=== PATIENT | female | born 1965 | race Hispanic/Latino ===

== ENCOUNTER → 2022-02-07 | Outpatient (CLI) | payer BC | END | disposition home or self-care (01) | LOC: RAH 10:52 | PROVIDERS: ATTEND Orthopaedic Surgery | DX: M48.02 Spinal stenosis, cervical region (principal); M50.10 Cervical disc disorder with radiculopathy, unspecified cervical region | CPT/HCPCS: 72141 ==

== ENCOUNTER 2022-02-28 05:57 | Day surgery (SDC) | payer BC ==
[2022-02-27 11:02] VITALS: BP 131/76
[2022-02-28] VITALS (18 sets, daily range): BP systolic 115–151; BP diastolic 58–79
[~2022-02-28] VITALS: Ht 149.9 cm; Wt 71.4 kg
[~2022-02-28 05:57] MED LIST: ACET-2743 PO; ACET-3540 PO; ATOR20TA65 PO; IBUP-2077 PO
[2022-02-28] MEDS ORDERED: LACTATED RINGERS 1000ML 1,000 ML IV ONE (07:01)
[2022-02-28] MEDS ORDERED: CEFAZOLIN SODIUM 1 GM VIAL ONE (07:01)
[2022-02-28 07:40] LABS: INR 0.93 (0.85-1.15); PROTHROMBIN TIME 9.5 SEC (9.6-11.6)
[2022-02-28] MEDS ORDERED: MIDAZOLAM HCL 1 MG/ML 2ML VIAL ONE (07:59)
[2022-02-28] MEDS ORDERED: FENTANYL CITRATE PF 50 MCG/1 ML 2ML VIAL ONE ×2 (08:00→09:24)
[2022-02-28] MEDS: CEFAZOLIN SODIUM 2 GM VIAL IV SCH ×2 (08:04→09:00)
[2022-02-28] MEDS ORDERED: PHENYLEPHRINE HCL 10 MG/ML 1ML VIAL IV ONE (09:19)
[2022-02-28] MEDS ORDERED: ONDANSETRON 4MG INJ ONE ×2 (09:24→10:08)
[2022-02-28] MEDS ORDERED: MEPERIDINE-PF 25 MG/ML SYG ONE (10:08)
== END 2022-02-28 12:30 | disposition home or self-care (01) ==
LOC: DAH 05:57
PROVIDERS: ATTEND Neurological Surgery
DX: G56.01 Carpal tunnel syndrome, right upper limb (principal); E66.9 Obesity, unspecified; Z98.890 Other specified postprocedural states; Z98.891 History of uterine scar from previous surgery; Z79.01 Long term (current) use of anticoagulants
CPT/HCPCS: 36415; 64721; 85610; 87635; A4215; A4221; A4222; A4223 ×2; A4663; A6260; C9803; J0690; J2175; J2250; J2370; J2405 ×2; J3010 ×2; J7120

== ENCOUNTER 2024-02-23 11:26 | Emergency (ER) | payer BC ==
[~2024-02-23] VITALS: Ht 149.9 cm; Wt 70.3 kg
[2024-02-23 12:35] LABS: APPEARANCE,URINE CLEAR (CLEAR); BILIRUBIN,URINE NEGATIVE (NEGATIVE); COLOR,URINE DARK-YELLOW (YELLOW); GLUCOSE, URINE (UA) NEGATIVE (NEGATIVE); KETONES,URINE NEGATIVE (NEGATIVE); LEUKOCYTE ESTERASE ,URINE NEGATIVE Leu/uL (NEGATIVE); NITRATE,URINE 1+ (NEGATIVE); PH,URINE 5.5 (5.0-8.0); PROTEIN,URINE NEGATIVE (NEGATIVE); SQUAMOUS EPITHELIAL CELL,UR FEW /HPF (0-2); WBC,URINE 0-1 /HPF (0-1)
[2024-02-23 12:41] LABS: BASOPHILS # (AUTO) 0.06 K/uL (0.00-0.20); EOSINOPHILS % (AUTO) 1.7 % (0.0-8.0); HEMATOCRIT 41.8 % (36-48); IMMATURE GRANULOCYTE ABSOLUTE 0.02 K/uL (0-1); LYMPHOCYTES # (AUTO) 2.2 K/uL (1.0-4.8); LYMPHOCYTES % (AUTO) 37.9 % (21.0-51.0); MEAN CORPUSCULAR HEMOGLOBIN 31.1 pg (27.0-33.0); MEAN CORPUSCULAR VOLUME 91.5 fL (79-99); MONOCYTES # (AUTO) 0.4 K/uL (0.1-1.0); NEUTROPHILS % (AUTO) 52.1 % (40.0-77.0); PLATELET COUNT (AUTO) 327 K/uL (130-400); RED BLOOD CELL COUNT(AUTO) 4.57 MIL/uL (4.00-5.50); RED CELL DISTRIBUTION WIDTH 12.3 % (11.0-15.5); WHITE BLOOD COUNT (AUTO) 5.7 K/uL (4.8-10.8)
[2024-02-23 13:00] LABS: CREATININE 1.1 mg/dL (0.5-1.0); POTASSIUM 4.1 mmol/L (3.5-5.1)
[2024-02-23] MEDS ORDERED: CEPH500T PO (14:27)
[2024-02-23] MEDS ORDERED: ONDANSETRON 4MG INJ IVP ONE (14:30)
[2024-02-23] MEDS: CEFTRIAXONE 2GM VIAL IVPB ONE (14:32)
[2024-02-23] MEDS: HYDROCODONE/ACETAMINOPHEN 10/325 MG TAB PO ONE (14:32)
[2024-02-23] MEDS: ONDANSETRON 4MG TABLET PO ONE (14:32)
[2024-02-23 14:36] VITALS: BP 115/68; PULSE 72; RESP 16; O2SAT 97
== END 2024-02-23 14:50 | disposition home or self-care (01) ==
LOC: EDH 11:26
DX: N39.0 Urinary tract infection, site not specified (principal); F41.9 Anxiety disorder, unspecified; E78.00 Pure hypercholesterolemia, unspecified; Z88.5 Allergy status to narcotic agent; Z90.49 Acquired absence of other specified parts of digestive tract; Z90.710 Acquired absence of both cervix and uterus
CPT/HCPCS: 99284; 74176; 96365; 80048; 85025; 87086; 81001; 36415; Q0162; J0696

== ENCOUNTER → 2024-08-03 | Outpatient (CLI) | payer BC ==
[~2024-08-03] MED LIST changes: +CEPH500T PO
--- NOTE | 2024-08-03 09:44 | HMCIMG ---
SCREENING MAMMOGRAM REASON: Annual Exam COMPARISON: 01/11/2022 TECHNIQUE: CC and MLO views of the bilateral breasts were performed.CAD was performed as well. FINDINGS: Parenchymal density: The breasts are heterogeneously dense, which may obscure small masses. There are no focal mass lesions. There are no pathologic appearing calcifications. There is no evidence of architectural distortion or skin thickening. IMPRESSION: Normal screening mammogram The patient was entered into a reminder system with a target due date for their next mammogram. BI-RADS CATEGORY 1: NEGATIVE Recommend monthly self breast exam as well as annual clinical examination. A negative x-ray should not delay biopsy if a dominant or clinically suspicious mass is present, since 8-10% of cancers are not identified by mammography. Dense breasts particularly, may obscure an underlying neoplasm. Some of these may be detected clinically and therefore, clinical examination is an essential part of breast evaluation.
== END | disposition home or self-care (01) ==
LOC: RAH 08:25
PROVIDERS: ATTEND Obstetrics & Gynecology
DX: Z12.31 Encounter for screening mammogram for malignant neoplasm of breast (principal); R92.333 Mammographic heterogeneous density, bilateral breasts
CPT/HCPCS: 77067